=== PATIENT | female | born 1985 | race Caucasian/White ===

== ENCOUNTER → 2016-07-15 | Outpatient (CLI) | payer BC | END | disposition home or self-care (01) | LOC: LABWHC1 06:36 | PROVIDERS: ATTEND Obstetrics & Gynecology Reproductive Endocrinology | DX: N97.0 Female infertility associated with anovulation (principal) | CPT/HCPCS: 36415; 82670 ==

== ENCOUNTER → 2016-09-14 | Outpatient (CLI) | payer BC | LOC: LABWHC1 06:37 | PROVIDERS: ATTEND Obstetrics & Gynecology Reproductive Endocrinology | DX: N97.0 Female infertility associated with anovulation (principal) | CPT/HCPCS: 36415; 82670 ==

== ENCOUNTER 2016-10-02 07:55 | Emergency (ER) | payer BC ==
[2016-10-02 08:01] VITALS: TEMP 98.3
[2016-10-02] MEDS ORDERED: METOCLOPRAMIDE 5 MG/ML 2 ML VIAL IVP STA ×2 (08:12→10:07)
[2016-10-02] MEDS ORDERED: FAMOTIDINE 20 MG/2 ML VIAL IV STA (08:12)
--- NOTE | 2016-10-02 08:17 | ED ---
Abdominal Pain HPI - General Chief Complaint: Abdominal Pain Stated Complaint: HEARTBURN, VOMITING, CHEST PAIN Time Seen by Provider: 10/02/16 08:05 Source: patient, RN notes reviewed Mode of arrival: ambulatory Limitations: no limitations - History of Present Illness Initial Comments: Patient is a 31-year-old female presents emergency room for evaluation heartburn , nausea and vomiting. Patient states symptoms began last night. Patient states she has a history of heartburn. Patient states around 6 PM she began experiencing heartburn and took Prilosec. Patient states shortly after she began vomiting. Patient states she's vomited about 12 times since last night. Patient states she is still experiencing heartburn. Patient states she is still feeling very nauseous. Patient denies any abdominal pain. Patient states pain is in her upper midepigastric area. Patient denies diarrhea or constipation. Patient denies recent travel outside the country. Patient denies new foods. Patient denies shortness of breath. Patient denies headache or dizziness. Patient denies fevers or chills. Patient states she's been unable to keep any food or water down. Patient states her last menstrual cycle was 09/18/16. Patient states that she is on a fertility regimen. Patient states she just received Ovidrel on Monday. Patient states this is her third round of Ovidrel. - Related Data Home Medications Medication Instructions Recorded Confirmed Cetirizine HCl [Zyrtec] 10 mg PO DAILY 10/02/16 10/02/16 Choriogonadotropin Som [Ovidrel] 250 mcg SQ Q28D 10/02/16 10/02/16 Omeprazole [PriLOSEC] 20 mg PO DAILY 10/02/16 10/02/16 Previous Rx's Medication Instructions Recorded Famotidine [Pepcid] 20 mg PO DAILY PRN #12 tablet 10/02/16 Metoclopramide HCl [Reglan] 5 mg PO Q8HR PRN #12 tablet 10/02/16 Allergies Allergy/AdvReac Type Severity Reaction Status Date / Time No Known Allergies Allergy Verified 10/02/16 08:47 Review of Systems ROS Statement: Those systems with pertinent positive or pertinent negative responses have been documented in the HPI. ROS Other: All systems not noted in ROS Statement are negative. Past Medical History Additional Past Medical History / Comment(s): Seasonal Allergies; Hypoglycemia History of Any Multi-Drug Resistant Organisms: None Reported Past Surgical History: No Surgical Hx Reported Past Psychological History: No Psychological Hx Reported Smoking Status: Never smoker Past Alcohol Use History: Occasional Past Drug Use History: None Reported General Exam - General Exam Comments Initial Comments: Sitting in exam room, no acute distress. Limitations: no limitations General appearance: alert, in no apparent distress Head exam: Present: atraumatic, normocephalic, normal inspection Eye exam: Present: normal appearance ENT exam: Present: normal exam Neck exam: Present: normal inspection Respiratory exam: Present: normal lung sounds bilaterally. Absent: respiratory distress Cardiovascular Exam: Present: regular rate, normal rhythm, normal heart sounds GI/Abdominal exam: Present: soft, tenderness (Upper mid epigastric), normal bowel sounds. Absent: distended, guarding, rebound, rigid Extremities exam: Present: normal inspection Back exam: Present: normal inspection Neurological exam: Present: alert, oriented X3, CN II-XII intact, normal gait Psychiatric exam: Present: normal affect, normal mood Skin exam: Present: warm, dry, intact, normal color. Absent: rash Course Vital Signs 10/02/16 10/02/16 10/02/16 07:56 12:40 13:26 Temperature 98.3 F 98.3 F Pulse Rate 55 L 54 L 57 L Respiratory 20 18 20 Rate Blood Pressure 139/77 159/82 144/80 O2 Sat by Pulse 100 97 100 Oximetry - Reevaluation(s) Reevaluation #1: 10/02/16 11:17 Patient reevaluated still having upper epigastric pain. Patient offered stronger pain medications. Patient's urine test positive most likely due to Ovidrel. Patient does state that they will not know for sure if patient is actually until 9-14 days after she takes medication. Urine therefore may be a false positive. Patient offered CT even though urine test positive. Patient declined CT and she thinks it just heartburn. We evaluated patient. Reevaluation #2: 10/02/16 12:34 Patient reevaluated and still has not stopped her pain medications. Will reevaluate patient shortly after she receives medications. Again spoke with patient on further evaluation. Patient declined. Medical Decision Making - Medical Decision Making Patient is a 31-year-old female presents to emergency room for nausea, vomiting and heartburn. Patient states she's feeling better after medications given. Patient rehydrated with fluids. Patient declines further evaluation. Patient is currently on Ovirel fertility treatment. Patient states this third round and has never had any issues. I did look up adverse effects and there is possibility of thromboembolism. This was explained to patient and her . Patient was still declined any further evaluation and would like to be discharged home. Will send patient home with Reglan and Pepcid as needed and advised her to follow-up with her primary care provider or AIRPORT MAINTENANCE LABORER. Patient states she understands everything that was discussed with her. Return parameters discussed. Case discussed with Dr. Carrion. - Lab Data Result diagrams: 10/02/16 08:24 10/02/16 08:24 Lab Results 10/02/16 10/02/16 10/02/16 Range/Units 08:22 08:22 08:24 WBC (3.8-10.6) k/uL RBC (3.80-5.40) m/uL Hgb (11.4-16.0) gm/dL Hct (34.0-46.0) % MCV (80.0-100.0) fL MCH (25.0-35.0) pg MCHC (31.0-37.0) g/dL RDW (11.5-15.5) % Plt Count (150-450) k/uL Neutrophils % % Lymphocytes % % Monocytes % % Eosinophils % % Basophils % % Neutrophils # (1.3-7.7) k/uL Lymphocytes # (1.0-4.8) k/uL Monocytes # (0-1.0) k/uL Eosinophils # (0-0.7) k/uL Basophils # (0-0.2) k/uL Sodium (137-145) mmol/L Potassium (3.5-5.1) mmol/L Chloride (98-107) mmol/L Carbon Dioxide (22-30) mmol/L Anion Gap mmol/L BUN (7-17) mg/dL Creatinine (0.52-1.04) mg/dL Est GFR (MDRD) Af Amer (>60 ml/min/1.73 sqM) Est GFR (MDRD) Non-Af (>60 ml/min/1.73 sqM) Glucose (74-99) mg/dL Calcium (8.4-10.2) mg/dL Total Bilirubin (0.2-1.3) mg/dL AST (14-36) U/L ALT (9-52) U/L Alkaline Phosphatase (38-126) U/L Total Protein (6.3-8.2) g/dL Albumin (3.5-5.0) g/dL Amylase (30-110) U/L Lipase 53 (23-300) U/L Urine Color Yellow Urine Appearance Cloudy H (Clear) Urine pH 5.5 (5.0-8.0) Ur Specific [place] 1.027 (1.001-1.035) Urine Protein 1+ H (Negative) Urine Glucose (UA) Negative (Negative) Urine Ketones 4+ H (Negative) Urine Blood Trace H (Negative) Urine Nitrite Negative (Negative) Urine Bilirubin Negative (Negative) Urine Urobilinogen <2.0 (<2.0) mg/dL Ur Leukocyte Esterase Small H (Negative) Urine RBC 6 H (0-5) /hpf Urine WBC 4 (0-5) /hpf Ur Squamous Epith Cells 3 (0-4) /hpf Urine Mucus Many H (None) /hpf Urine HCG, Qual Detected (Not Detectd) 10/02/16 10/02/16 Range/Units 08:24 08:24 WBC 20.9 H (3.8-10.6) k/uL RBC 4.58 (3.80-5.40) m/uL Hgb 14.3 (11.4-16.0) gm/dL Hct 43.1 (34.0-46.0) % MCV 94.0 (80.0-100.0) fL MCH 31.3 (25.0-35.0) pg MCHC 33.3 (31.0-37.0) g/dL RDW 12.8 (11.5-15.5) % Plt Count 340 (150-450) k/uL Neutrophils % 92 % Lymphocytes % 5 % Monocytes % 1 % Eosinophils % 1 % Basophils % 1 % Neutrophils # 19.3 H (1.3-7.7) k/uL Lymphocytes # 1.0 (1.0-4.8) k/uL Monocytes # 0.3 (0-1.0) k/uL Eosinophils # 0.1 (0-0.7) k/uL Basophils # 0.1 (0-0.2) k/uL Sodium 139 (137-145) mmol/L Potassium 4.3 (3.5-5.1) mmol/L Chloride 103 (98-107) mmol/L Carbon Dioxide 24 (22-30) mmol/L Anion Gap 12 mmol/L BUN 11 (7-17) mg/dL Creatinine 0.72 (0.52-1.04) mg/dL Est GFR (MDRD) Af Amer >60 (>60 ml/min/1.73 sqM) Est GFR (MDRD) Non-Af >60 (>60 ml/min/1.73 sqM) Glucose 119 H (74-99) mg/dL Calcium 10.0 (8.4-10.2) mg/dL Total Bilirubin 0.7 (0.2-1.3) mg/dL AST 19 (14-36) U/L ALT 24 (9-52) U/L Alkaline Phosphatase 90 (38-126) U/L Total Protein 7.9 (6.3-8.2) g/dL Albumin 4.6 (3.5-5.0) g/dL Amylase 51 (30-110) U/L Lipase (23-300) U/L Urine Color Urine Appearance (Clear) Urine pH (5.0-8.0) Ur Specific [place] (1.001-1.035) Urine Protein (Negative) Urine Glucose (UA) (Negative) Urine Ketones (Negative) Urine Blood (Negative) Urine Nitrite (Negative) Urine Bilirubin (Negative) Urine Urobilinogen (<2.0) mg/dL Ur Leukocyte Esterase (Negative) Urine RBC (0-5) /hpf Urine WBC (0-5) /hpf Ur Squamous Epith Cells (0-4) /hpf Urine Mucus (None) /hpf Urine HCG, Qual (Not Detectd) Disposition Clinical Impression: Nausea and vomiting, GERD (gastroesophageal reflux disease) Disposition: HOME SELF-CARE Condition: Good Instructions: Gastroesophageal Reflux Disease (ED), Acute Nausea and Vomiting ( ED) Additional Instructions: Take medications as needed. Please follow-up with primary care provider for reevaluation in 24-48 hours. If any new symptom arises or symptoms worsen, return to ER as soon as possible. Prescriptions: Metoclopramide HCl [Reglan] 5 mg PO Q8HR PRN #12 tablet PRN Reason: Nausea Famotidine [Pepcid] 20 mg PO DAILY PRN #12 tablet PRN Reason: Pain Referrals: Deanna Shah MD [Primary Care Provider] - 1-2 days Time of Disposition: 13:19
[2016-10-02] MEDS ORDERED: SODIUM CHLORIDE 0.9% 1,000 ML IV STA (08:21)
[2016-10-02 08:39] LABS: Basophils # (A) 0.1 k/uL (0-0.2); Basophils % (A) 1 %; CH 32.2; CHCM 34.5; Eosinophils # (A) 0.1 k/uL (0-0.7); Eosinophils % (A) 1 %; HCT 43.1 % (34.0-46.0); HDW 2.37; HGB 14.3 gm/dL (11.4-16.0); Luc # (Auto) 0.08; Luc % (Auto) 0; Lymphocytes % (A) 5 %; MCH 31.3 pg (25.0-35.0); MCHC 33.3 g/dL (31.0-37.0); Mean Platelet Volume 6.8; Monocytes # (A) 0.3 k/uL (0-1.0); Monocytes % (A) 1 %; Neutrophils # (A) 19.3 k/uL (1.3-7.7); Neutrophils % (A) 92 %; RBC 4.58 m/uL (3.80-5.40); RDW 12.8 % (11.5-15.5); WBC 20.9 k/uL (3.8-10.6); WBC (Perox) 20.55
[2016-10-02 08:50] LABS: ALT 24 U/L (9-52); AST 19 U/L (14-36); Alkaline Phosphatase 90 U/L (38-126); Amylase 51 U/L (30-110); Anion Gap 12 mmol/L; Blood Urea Nitrogen 11 mg/dL (7-17); Carbon Dioxide 24 mmol/L (22-30); Chloride 103 mmol/L (98-107); Glucose 119 mg/dL (74-99); Non-African American GFR(MDRD) >60 (>60 ml/min/1.73 sqM); Potassium 4.3 mmol/L (3.5-5.1); Sodium 139 mmol/L (137-145); Total Bilirubin 0.7 mg/dL (0.2-1.3); Total Protein 7.9 g/dL (6.3-8.2)
[2016-10-02 08:53] LABS: Appearance,Urine Cloudy (Clear); Bilirubin,Urine Negative (Negative); Glucose,Urine (UA) Negative (Negative); Ketones,Urine 4+ (Negative); Leukocyte Esterase,Urine Small (Negative); Mucus,Urine Many /hpf; Nitrite,Urine Negative (Negative); PH, Urine 5.5 (5.0-8.0); Particle Count 18281; Protein,Urine 1+ (Negative); RBC,Urine 6 /hpf (0-5); Specific Gravity,Urine 1.027 (1.001-1.035); Squamous Epithelial Cell,Urine 3 /hpf (0-4); UA Billing (MACRO vs. MICRO) MICRO; Urobilinogen,Urine <2.0 mg/dL (<2.0); WBC,Urine 4 /hpf (0-5)
[2016-10-02] MEDS ORDERED: ONDANSETRON 4 MG/2 ML VIAL IVP STA (09:11)
[2016-10-02] MEDS ORDERED: HYDROmorphone 1 MG/ML 1 ML SYRINGE IVP STA (11:09)
[2016-10-02] MEDS ORDERED: SODIUM CHLORIDE 0.9% 1,000 ML IV ONE (11:09)
[2016-10-02 13:31] VITALS: BP 144/80; PULSE 57; RESP 20
== END 2016-10-02 13:31 | disposition home or self-care (01) ==
LOC: EC 07:55
DX: K21.9 Gastro-esophageal reflux disease without esophagitis (principal); R11.2 Nausea with vomiting, unspecified; R07.9 Chest pain, unspecified; Z79.899 Other long term (current) drug therapy
CPT/HCPCS: 36415; 93005; 80053; 82150; 83690; 85025; 81001; 81025; 99284; 96374; 96375 ×3; 96376; J2765; J2405; J1170

== ENCOUNTER → 2016-10-11 | Outpatient (CLI) | payer BC | END | disposition home or self-care (01) | LOC: LABWHC1 06:32 | PROVIDERS: ATTEND Obstetrics & Gynecology Reproductive Endocrinology | DX: N91.0 Primary amenorrhea (principal) | CPT/HCPCS: 36415; 84144; 84702 ==

== ENCOUNTER → 2016-10-13 | Outpatient (CLI) | payer BC ==
[2016-10-13 07:20] LABS: HCG,Quantitative Serum 1739.3 mIU/mL
== END | disposition home or self-care (01) ==
LOC: LABWHC1 06:33
PROVIDERS: ATTEND Obstetrics & Gynecology Reproductive Endocrinology
DX: N91.2 Amenorrhea, unspecified (principal)
CPT/HCPCS: 36415; 84443; 84702; 86900; 86901

== ENCOUNTER → 2016-10-17 | Outpatient (CLI) | payer BC | END | disposition home or self-care (01) | LOC: LABWHC1 06:36 | PROVIDERS: ATTEND Obstetrics & Gynecology Reproductive Endocrinology | DX: O20.0 Threatened abortion (principal); Z3A.00 Weeks of gestation of pregnancy not specified | CPT/HCPCS: 36415; 84702 ==

== ENCOUNTER → 2016-12-13 | Outpatient (CLI) | payer BC ==
[2016-12-13 14:23] LABS: CH 31.7; CHCM 34.9; HCT 35.1 % (34.0-46.0); HDW 2.44; HGB 12.3 gm/dL (11.4-16.0); MCHC 35.1 g/dL (31.0-37.0); MCV 91.2 fL (80.0-100.0); Mean Platelet Volume 7.5; RBC 3.85 m/uL (3.80-5.40); RDW 13.6 % (11.5-15.5); WBC 11.2 k/uL (3.8-10.6)
[2016-12-13 14:28] LABS: Glucose 103 mg/dL (74-99); Non-African American GFR(MDRD) >60 (>60 ml/min/1.73 sqM)
[2016-12-13 14:58] LABS: Hepatitis B Surface Ag Index 0.05
[2016-12-13 19:00] LABS: Treponemal Ab Non-Reactive (Non-Reactive)
== END | disposition home or self-care (01) ==
LOC: LABWHC1 13:13
PROVIDERS: ATTEND Obstetrics & Gynecology
DX: Z34.01 Encounter for supervision of normal first pregnancy, first trimester (principal); R53.83 Other fatigue
CPT/HCPCS: 36415; 82565; 82947; 85027; 86762; 86780; 86850; 87340; 87390

== ENCOUNTER 2016-12-14 11:34 | Emergency (ER) | payer BC ==
[2016-12-14] MEDS ORDERED: SODIUM CHLORIDE 0.9% 1,000 ML IV STA (12:16)
[2016-12-14 12:17] LABS: Glucose,Whole Blood 105 mg/dL (75-99)
--- NOTE | 2016-12-14 12:17 | ED ---
Fall HPI - General Chief Complaint: Fall Stated Complaint: 13 WEEKS PREG, SYNCOPE Time Seen by Provider: 12/14/16 12:05 Source: patient, RN notes reviewed, old records reviewed Mode of arrival: wheelchair - History of Present Illness Initial Comments: Physical 31-year-old female presenting to the emergency Department chief complaint of syncopal episode today. Patient reports that she was sitting in her garage talking to her and all of a sudden felt lightheaded. Patient reports that at that time she did pass out and went to the ground. She denies hitting her head, but did twist her right foot. She reports there is pain over the top of the right foot. Denies any peripheral paresthesias or decreased range of motion in the toes or ankle. She reports that there was a brief loss of consciousness for one to 2 seconds. Patient's states that she responded quickly after he ran to her. Patient is currently 13 weeks . She reports that she did have some bleeding and was concerned for this last week. She has followed up with her ENGINEERING PROGRAMMER and does have an appointment next week. Patient denies any abdominal pain, chest pain or shortness of breath. She denies any vaginal discharge or bleeding at this time. She states that her ENGINEERING PROGRAMMER is Dr. Daly. - Related Data Home Medications Medication Instructions Recorded Confirmed Cetirizine HCl [Zyrtec] 10 mg PO HS 10/02/16 12/14/16 Cholecalciferol [Vitamin D3] 1,000 unit PO DAILY 12/14/16 12/14/16 Ccx-Mifh-Daqum Acid 1 cap PO DAILY 12/14/16 12/14/16 [-U Capsule (formulary)] Vitamin B Sticks 1 dose PO DAILY PRN 12/14/16 12/14/16 diphenhydrAMINE HCL [Benadryl] 25 - 50 mg PO Q6H PRN 12/14/16 12/14/16 Allergies Allergy/AdvReac Type Severity Reaction Status Date / Time No Known Allergies Allergy Verified 12/14/16 11:52 Review of Systems ROS Statement: Those systems with pertinent positive or pertinent negative responses have been documented in the HPI. ROS Other: All systems not noted in ROS Statement are negative. Past Medical History Additional Past Medical History / Comment(s): Seasonal Allergies; Hypoglycemia History of Any Multi-Drug Resistant Organisms: None Reported Past Surgical History: No Surgical Hx Reported Past Psychological History: No Psychological Hx Reported Smoking Status: Never smoker Past Alcohol Use History: Occasional Past Drug Use History: None Reported General Exam - General Exam Comments Initial Comments: 31-year-old female. Patient does not appear to be in any acute distress. Patient reports that she feels fine at this time besides the irritation over her foot. Limitations: no limitations General appearance: alert, in no apparent distress Head exam: Present: atraumatic, normocephalic, normal inspection Eye exam: Present: normal appearance, PERRL, EOMI. Absent: scleral icterus, conjunctival injection, periorbital swelling ENT exam: Present: normal exam, mucous membranes moist Neck exam: Present: normal inspection. Absent: tenderness, meningismus, lymphadenopathy Respiratory exam: Present: normal lung sounds bilaterally. Absent: respiratory distress, wheezes, rales, rhonchi, stridor Cardiovascular Exam: Present: regular rate, normal rhythm, normal heart sounds. Absent: systolic murmur, diastolic murmur, rubs, gallop, clicks GI/Abdominal exam: Present: soft, normal bowel sounds. Absent: distended, tenderness, guarding, rebound, rigid Extremities exam: Present: normal inspection, full ROM, normal capillary refill. Absent: tenderness, pedal edema, joint swelling, calf tenderness Back exam: Present: normal inspection Neurological exam: Present: alert, oriented X3, CN II-XII intact Psychiatric exam: Present: normal affect, normal mood Skin exam: Present: warm, dry, intact, normal color. Absent: rash Course Vital Signs 12/14/16 12/14/16 11:39 14:09 Temperature 97.3 F L 98.4 F Pulse Rate 70 64 Respiratory 17 18 Rate Blood Pressure 125/70 114/58 O2 Sat by Pulse 100 100 Oximetry Procedures - Orthopedic Splinting/Casting Injury #1 Side: right Lower Extremity Immobilizer: posterior splint Medical Decision Making - Medical Decision Making Physical 31-year-old female presenting to the emergency Department chief complaint of syncopal episode today. Patient reports that she was sitting in her garage talking to her and all of a sudden felt lightheaded. Patient reports that at that time she did pass out and went to the ground. She denies hitting her head, but did twist her right foot. She reports there is pain over the top of the right foot. Denies any peripheral paresthesias or decreased range of motion in the toes or ankle. She reports that there was a brief loss of consciousness for one to 2 seconds. Patient's states that she responded quickly after he ran to her. Patient is currently 13 weeks . She reports that she did have some bleeding and was concerned for this last week. Patient's lab work and EKG reviewed and negative for any acute process. A foot x-ray does show evidence of a second metatarsal fracture. Patient was placed in a posterior splint. I discussed following up with orthopedic physician. [facility] ultrasound shows single IUP measuring 14 weeks. Her rate of 147. Patient agrees to treatment plan will comply. Return parameters were discussed. - Lab Data Result diagrams: 12/14/16 12:32 12/14/16 12:32 Lab Results 12/14/16 12/14/16 12/14/16 Range/Units 12:15 12:32 12:32 WBC 11.0 H (3.8-10.6) k/uL RBC 3.97 (3.80-5.40) m/uL Hgb 12.7 (11.4-16.0) gm/dL Hct 35.9 (34.0-46.0) % MCV 90.4 (80.0-100.0) fL MCH 31.9 (25.0-35.0) pg MCHC 35.3 (31.0-37.0) g/dL RDW 13.4 (11.5-15.5) % Plt Count 304 (150-450) k/uL Neutrophils % 81 % Lymphocytes % 12 % Monocytes % 5 % Eosinophils % 1 % Basophils % 0 % Neutrophils # 8.9 H (1.3-7.7) k/uL Lymphocytes # 1.4 (1.0-4.8) k/uL Monocytes # 0.5 (0-1.0) k/uL Eosinophils # 0.1 (0-0.7) k/uL Basophils # 0.0 (0-0.2) k/uL PT (9.0-12.0) sec INR (<1.1) APTT (22.0-30.0) sec Sodium (137-145) mmol/L Potassium (3.5-5.1) mmol/L Chloride (98-107) mmol/L Carbon Dioxide (22-30) mmol/L Anion Gap mmol/L BUN (7-17) mg/dL Creatinine (0.52-1.04) mg/dL Est GFR (MDRD) Af Amer (>60 ml/min/1.73 sqM) Est GFR (MDRD) Non-Af (>60 ml/min/1.73 sqM) Glucose (74-99) mg/dL POC Glucose (mg/dL) 105 H (75-99) mg/dL POC Glu Rack Pusher ID Marlee Gutierrez Calcium (8.4-10.2) mg/dL Magnesium (1.6-2.3) mg/dL Total Bilirubin (0.2-1.3) mg/dL AST (14-36) U/L ALT (9-52) U/L Alkaline Phosphatase (38-126) U/L Total Creatine Kinase 24 L (30-135) U/L CK-MB (CK-2) <0.2 (0.0-2.4) ng/mL CK-MB (CK-2) Rel Index Troponin I <0.012 (0.000-0.034) ng/mL Total Protein (6.3-8.2) g/dL Albumin (3.5-5.0) g/dL Urine Color Urine Appearance (Clear) Urine pH (5.0-8.0) Ur Specific [place] (1.001-1.035) Urine Protein (Negative) Urine Glucose (UA) (Negative) Urine Ketones (Negative) Urine Blood (Negative) Urine Nitrite (Negative) Urine Bilirubin (Negative) Urine Urobilinogen (<2.0) mg/dL Ur Leukocyte Esterase (Negative) Urine RBC (0-5) /hpf Urine WBC (0-5) /hpf Ur Squamous Epith Cells (0-4) /hpf Urine Mucus (None) /hpf 12/14/16 12/14/16 12/14/16 Range/Units 12:32 12:32 12:45 WBC (3.8-10.6) k/uL RBC (3.80-5.40) m/uL Hgb (11.4-16.0) gm/dL Hct (34.0-46.0) % MCV (80.0-100.0) fL MCH (25.0-35.0) pg MCHC (31.0-37.0) g/dL RDW (11.5-15.5) % Plt Count (150-450) k/uL Neutrophils % % Lymphocytes % % Monocytes % % Eosinophils % % Basophils % % Neutrophils # (1.3-7.7) k/uL Lymphocytes # (1.0-4.8) k/uL Monocytes # (0-1.0) k/uL Eosinophils # (0-0.7) k/uL Basophils # (0-0.2) k/uL PT 10.1 (9.0-12.0) sec INR 1.0 (<1.1) APTT 25.1 (22.0-30.0) sec Sodium 138 (137-145) mmol/L Potassium 4.5 (3.5-5.1) mmol/L Chloride 106 (98-107) mmol/L Carbon Dioxide 23 (22-30) mmol/L Anion Gap 9 mmol/L BUN 7 (7-17) mg/dL Creatinine 0.61 (0.52-1.04) mg/dL Est GFR (MDRD) Af Amer >60 (>60 ml/min/1.73 sqM) Est GFR (MDRD) Non-Af >60 (>60 ml/min/1.73 sqM) Glucose 92 (74-99) mg/dL POC Glucose (mg/dL) (75-99) mg/dL POC Glu Rack Pusher ID Calcium 9.2 (8.4-10.2) mg/dL Magnesium 1.7 (1.6-2.3) mg/dL Total Bilirubin 0.4 (0.2-1.3) mg/dL AST 15 (14-36) U/L ALT 23 (9-52) U/L Alkaline Phosphatase 100 (38-126) U/L Total Creatine Kinase (30-135) U/L CK-MB (CK-2) (0.0-2.4) ng/mL CK-MB (CK-2) Rel Index Troponin I (0.000-0.034) ng/mL Total Protein 6.6 (6.3-8.2) g/dL Albumin 3.8 (3.5-5.0) g/dL Urine Color Yellow Urine Appearance Cloudy H (Clear) Urine pH 7.0 (5.0-8.0) Ur Specific [place] 1.017 (1.001-1.035) Urine Protein 1+ H (Negative) Urine Glucose (UA) Negative (Negative) Urine Ketones Negative (Negative) Urine Blood Negative (Negative) Urine Nitrite Negative (Negative) Urine Bilirubin Negative (Negative) Urine Urobilinogen <2.0 (<2.0) mg/dL Ur Leukocyte Esterase Negative (Negative) Urine RBC 1 (0-5) /hpf Urine WBC 1 (0-5) /hpf Ur Squamous Epith Cells 4 (0-4) /hpf Urine Mucus Moderate H (None) /hpf 12/14/16 12:44 EKG shows normal sinus rhythm. Low voltage QRS. Majority of 74 bpm. NM interval 142 ms. QRS duration 96 ms. QT QTC 396/439 ms. - Radiology Data Radiology results: report reviewed Transverse slightly comminuted fracture at the second metatarsal days. Correlate for possible Lisfranc type injury. No malalignment. ultrasound was reviewed and shows a single IUP measuring 14 weeks 3 days. Heart rate of 147. Disposition Clinical Impression: Metatarsal stress fracture of right foot, Syncope, Disposition: HOME SELF-CARE Condition: Good Instructions: Syncope (ED), Foot Fracture in Adults (ED) Additional Instructions: Patient is to rest, ice, and elevate extremity. Follow-up with orthopedic physician. Remain in splint. Return to the emergency department if any alarming signs or symptoms occur. Referrals: Deanna Shah MD [Primary Care Provider] - 1-2 days Abad Galdamez MD [STAFF PHYSICIAN] - 1-2 days Time of Disposition: 15:23
[2016-12-14 13:06] LABS: ALT 23 U/L (9-52); AST 15 U/L (14-36); Alkaline Phosphatase 100 U/L (38-126); Anion Gap 9 mmol/L; Blood Urea Nitrogen 7 mg/dL (7-17); Calcium 9.2 mg/dL (8.4-10.2); Carbon Dioxide 23 mmol/L (22-30); Chloride 106 mmol/L (98-107); Glucose 92 mg/dL (74-99); Magnesium 1.7 mg/dL (1.6-2.3); Non-African American GFR(MDRD) >60 (>60 ml/min/1.73 sqM); Potassium 4.5 mmol/L (3.5-5.1); Sodium 138 mmol/L (137-145); Total Bilirubin 0.4 mg/dL (0.2-1.3); Total Protein 6.6 g/dL (6.3-8.2)
[2016-12-14 13:14] LABS: Basophils % (A) 0 %; CH 31.5; Eosinophils # (A) 0.1 k/uL (0-0.7); Eosinophils % (A) 1 %; HCT 35.9 % (34.0-46.0); HDW 2.46; HGB 12.7 gm/dL (11.4-16.0); Luc # (Auto) 0.09; Luc % (Auto) 1; Lymphocytes # (A) 1.4 k/uL (1.0-4.8); Lymphocytes % (A) 12 %; MCH 31.9 pg (25.0-35.0); MCHC 35.3 g/dL (31.0-37.0); MCV 90.4 fL (80.0-100.0); Mean Platelet Volume 7.1; Monocytes # (A) 0.5 k/uL (0-1.0); Monocytes % (A) 5 %; Neutrophils # (A) 8.9 k/uL (1.3-7.7); Neutrophils % (A) 81 %; Partial Thromboplastin Time 25.1 sec (22.0-30.0); Prothrombin Time 10.1 sec (9.0-12.0); RBC 3.97 m/uL (3.80-5.40); RDW 13.4 % (11.5-15.5); WBC (Perox) 10.29
[2016-12-14 13:19] LABS: Creatine Kinase 24 U/L (30-135)
[2016-12-14 13:32] LABS: Creatine Kinase MB <0.2 ng/mL (0.0-2.4); Troponin I <0.012 ng/mL (0.000-0.034)
--- NOTE | 2016-12-14 13:40 | XR ---
EXAMINATION TYPE: XR foot complete RT DATE OF EXAM: 12/14/2016 COMPARISON: NONE HISTORY: 31-year-old female pain along the top of the foot, unknown injury TECHNIQUE: 3 views FINDINGS: There is a transverse, slightly comminuted fracture at the base of the second metatarsal. Associated soft tissue swelling. Small plantar calcaneal spur. No additional acute fracture or dislocation seen. IMPRESSION: Transverse, slightly comminuted fracture at the second metatarsal base. Correlate for possible [place] type injury. No malalignment.
[2016-12-14 14:10] VITALS: RESP 18
[2016-12-14 14:18] LABS: Appearance,Urine Cloudy (Clear); Bilirubin,Urine Negative (Negative); Glucose,Urine (UA) Negative (Negative); Ketones,Urine Negative (Negative); Leukocyte Esterase,Urine Negative (Negative); Mucus,Urine Moderate /hpf; Nitrite,Urine Negative (Negative); Particle Count 7977; Protein,Urine 1+ (Negative); RBC,Urine 1 /hpf (0-5); Specific Gravity,Urine 1.017 (1.001-1.035); Squamous Epithelial Cell,Urine 4 /hpf (0-4); UA Billing (MACRO vs. MICRO) MICRO; Urobilinogen,Urine <2.0 mg/dL (<2.0); WBC,Urine 1 /hpf (0-5)
--- NOTE | 2016-12-14 15:00 | US ---
EXAMINATION TYPE: US OB >= 14 wk fetus DATE OF EXAM: 12/14/2016 COMPARISON: None CLINICAL HISTORY: 31-year-old female with Pain. EC patient who passed out today and fell on abdomen; ; patient denies vaginal bleeding and pain TECHNIQUE: Transabdominal (TA) FINDINGS: GESTATIONAL AGE / DATING Physician Established: not established Dates by LMP: (14 weeks/0 days) EDC: 06/14/2017 Dates by First Scan: today Dates by Current Scan: (14 weeks/3 days) EDC: 06/11/2017 SURVEY IUP: Single PLACENTA: Anterior PREVIA: Low Lying, caudal placental margin located approximately 1.3 cm from the internal cervical o s. DANIAL: 9.4 cm appears wnl and is <16weeks (when DANIAL is normally assessed) CERVICAL LENGTH (transabdominal: norm > 3.0cm): 3.4 cm BIOMETRY PRESENTATION: Breech LIE: Longitudinal BPD: 2.7 cm 14 weeks / 5 days HC: 10.0 cm 14 weeks / 5 days AC: 7.7 cm 14 weeks / 1 days FL: 1.4 cm 14 weeks / 1 days ESTIMATED WEIGHT IN GRAMS: 92.5 grams ESTIMATED WEIGHT IN LBS/OZ: 0 lbs. 3 oz. WEIGHT PERCENTAGE BASED ON ESTABLISHED DATES: 48.3% HC/AC: 1.3 Normal FL/AC: 18.4 Normal HEART RATE: 147 bpm RHYTHM: Normal Single, live IUP, 14 weeks/3 days, EDC: 06/11/2017, [id number]. IMPRESSION: 1. Single live intrauterine with estimated gestational age of 14 weeks 0 days by LMP. Curre nt ultrasound biometry is concordant (14 weeks 3 days) placing the child at the 48th percentile for w eight. 2. Complete survey recommended at 18-20 weeks.
[2016-12-14 15:43] VITALS: BP 108/58; PULSE 82; TEMP 99.8
== END 2016-12-14 15:43 | disposition home or self-care (01) ==
LOC: EC 11:34
DX: O99.89 Other specified diseases and conditions complicating pregnancy, childbirth and the puerperium (principal); M84.371A Stress fracture, right ankle, initial encounter for fracture; O26.892 Other specified pregnancy related conditions, second trimester; R55 Syncope and collapse; R42 Dizziness and giddiness; Z79.899 Other long term (current) drug therapy; Z91.09 Other allergy status, other than to drugs and biological substances; Z3A.14 14 weeks gestation of pregnancy; X58.XXXA Exposure to other specified factors, initial encounter; Y92.59 Other trade areas as the place of occurrence of the external cause; Y93.89 Activity, other specified
CPT/HCPCS: 29345; 36415; 76805; 80053; 81001; 82550; 82553; 83735; 84484; 85025; 85610; 85730; 93005; 96360; 99284

== ENCOUNTER → 2017-03-02 | Outpatient (CLI) | payer BC ==
[2017-03-02 09:59] LABS: CH 32.3; CHCM 32.7; HCT 36.2 % (34.0-46.0); HDW 2.42; MCH 32.8 pg (25.0-35.0); MCHC 33.1 g/dL (31.0-37.0); MCV 99.4 fL (80.0-100.0); Mean Platelet Volume 7.7; RBC 3.65 m/uL (3.80-5.40); RDW 13.4 % (11.5-15.5); WBC 10.2 k/uL (3.8-10.6)
== END | disposition home or self-care (01) ==
LOC: LABWHC1 08:44
PROVIDERS: ATTEND Obstetrics & Gynecology
DX: Z34.02 Encounter for supervision of normal first pregnancy, second trimester (principal); Z3A.00 Weeks of gestation of pregnancy not specified
CPT/HCPCS: 36415; 82950; 85027

== ENCOUNTER 2017-06-14 05:54 | Inpatient (IN) | payer BC ==
--- NOTE | 2017-06-13 13:06 | P.HPOB ---
History of Present Illness H&P Date: 06/13/17 Chief Complaint: Induction of labor This is a 32 y.o. female, 1, para 0, with an estimated date of confinement of 06/14/2017, estimated gestational age of 40-0/7 weeks, who presents for induction of labor. She has been experiencing irregular contractions and pressure. She also has significant swelling in her legs. labs: Random glucose-103 Hepatitis B surface antigen-neg Hemoglobin-12.3 HIV-NR Syphilis antibody-neg Rubella-immune Blood type A+ Antibody screen-neg 1 hr. GTT-108 GBS-neg OB Hx: 1st Mold Filler Plastic Dolls Hx: No hx STDs Social Hx: . Teacher Review of Systems Constitutional: Denies chills, Denies fever Eyes: denies blurred vision, denies pain Ears, nose, mouth and throat: Denies headache, Denies sore throat Respiratory: Denies cough Gastrointestinal: Reports abdominal pain (Irreg. ctxs) Genitourinary: Reports pelvic pain, Reports Musculoskeletal: Reports low back pain Musculoskeletal: bilateral: ankle swelling, foot swelling Integumentary: Denies pruritus, Denies rash Neurological: Denies numbness, Denies weakness Psychiatric: Denies anxiety, Denies depression Past Medical History Additional Past Medical History / Comment(s): Seasonal Allergies; Hypoglycemia; Fracture R. foot-at 13 weeks History of Any Multi-Drug Resistant Organisms: None Reported Past Surgical History: No Surgical Hx Reported Past Psychological History: No Psychological Hx Reported Smoking Status: Never smoker Past Alcohol Use History: Occasional Past Drug Use History: None Reported Medications and Allergies Home Medications Medication Instructions Recorded Confirmed Type Cetirizine HCl [Zyrtec] 10 mg PO HS 10/02/16 12/14/16 History Cholecalciferol [Vitamin D3] 1,000 unit PO DAILY 12/14/16 12/14/16 History Chw-Ffgl-Phuxk Acid 1 cap PO DAILY 12/14/16 12/14/16 History [-U Capsule (formulary)] Vitamin B Sticks 1 dose PO DAILY PRN 12/14/16 12/14/16 History diphenhydrAMINE HCL [Benadryl] 25 - 50 mg PO Q6H PRN 12/14/16 12/14/16 History Allergies Allergy/AdvReac Type Severity Reaction Status Date / Time No Known Allergies Allergy Verified 12/14/16 11:52 Exam Osteopathic Statement: *. No significant issues noted on an osteopathic structural exam other than those noted in the History and Physical/Consult. HEENT: within normal limits Heart: regular rate and rhythm Lungs: clear to auscultation bilaterally Abdomen: Cervix: 1 cm/70%/-2 heart tones: 140's by doppler Extremities: 1-2+ pitting edema lower extremities. Assessment and Plan (1) 40 weeks gestation of Status: Acute Code(s): Z3A.40 - 40 WEEKS GESTATION OF SNOMED Code( s): 01133194 Plan: Proceed with induction of labor. Expectant management. Epidural anesthesia if desired.
[2017-06-14] MEDS ORDERED: LIDOCAINE 1% (PF) 10 MG/ML (30 ML SDV) SQ PRN (06:04)
[2017-06-14] MEDS ORDERED: OXYTOCIN 10 UNIT/ML 1 ML VIAL IM PRN (06:04)
[2017-06-14] MEDS ORDERED: METHYLERGONOVINE 0.2 MG/ML 1 ML AMP IM PRN (06:04)
[2017-06-14] MEDS ORDERED: TERBUTALINE 1 MG/ML VIAL SQ PRN (06:04)
[2017-06-14] MEDS ORDERED: LIDOCAINE 1% 20 ML VIAL (10MG/ML) FOR IV START INTRADERMA PRN (06:04)
[2017-06-14] MEDS ORDERED: CARBOPROST TROMETHAMINE 250 MCG/ML 1 ML AMP IM PRN (06:04)
[2017-06-14] MEDS ORDERED: OXYTOCIN 20 UNITS/1000 ML NS 1,000 ML IV SCH ×2 (06:04→19:12)
[2017-06-14 06:12] VITALS: BMI 40.2
[2017-06-14] MEDS: LACTATED RINGERS 1,000 ML IV SCH ×3 (06:30→13:20)
[2017-06-14 06:31] LABS: Basophils % (A) 0 %; Eosinophils # (A) 0.2 k/uL (0-0.7); Eosinophils % (A) 2 %; HCT 39.3 % (34.0-46.0); HGB 13.1 gm/dL (11.4-16.0); Lymphocytes # (A) 1.8 k/uL (1.0-4.8); Lymphocytes % (A) 17 %; MCH 32.3 pg (25.0-35.0); MCHC 33.4 g/dL (31.0-37.0); MCV 96.8 fL (80.0-100.0); Mean Platelet Volume 9.6; Monocytes # (A) 0.4 k/uL (0-1.0); Monocytes % (A) 4 %; Neutrophils # (A) 8.1 k/uL (1.3-7.7); Neutrophils % (A) 75 %; Platelet Count 239 k/uL (150-450); RBC 4.06 m/uL (3.80-5.40); RDW 14.5 % (11.5-15.5); WBC 10.8 k/uL (3.8-10.6)
[2017-06-14] MEDS ORDERED: BUTORPHANOL 1 MG/ML 1 ML VIAL IV PRN (11:01)
[2017-06-14] MEDS ORDERED: SODIUM CHLORIDE 0.9% 100 ML BAG ONE (12:48)
[2017-06-14] MEDS ORDERED: fentaNYL (PF) 50 MCG/ML 5 ML AMP ONE (12:48)
[2017-06-14] MEDS ORDERED: BUPIVACAINE (PF) 0.25% 30 ML VIAL ONE (12:48)
[2017-06-14] MEDS ORDERED: BUPIVACAINE (PF) 0.25% 25 ML, fentaNYL (PF) 200 MCG in SODIUM CHLORIDE 0.9% 71 ML EPIDURAL ONE (13:03)
[2017-06-14] MEDS ORDERED: WITCH HAZEL 1 EACH MED..PAD TOPICAL PRN (19:12)
[2017-06-14] MEDS ORDERED: diphenhydrAMINE 50 MG/ML 1 ML VIAL IVP PRN ×2 (19:12)
[2017-06-14] MEDS ORDERED: ACETAMINOPHEN TAB 325 MG TAB PO PRN (19:12)
[2017-06-14] MEDS ORDERED: LANOLIN CREAM 5 GM TUBE TOPICAL PRN (19:12)
[2017-06-14] MEDS ORDERED: BENZOCAINE/MENTHOL SPRAY 1 GM/SPRAY AEROSOL TOPICAL PRN (19:12)
[2017-06-14] MEDS ORDERED: ZOLPIDEM 5 MG TAB PO PRN (19:12)
[2017-06-14] MEDS ORDERED: diphenhydrAMINE 50 MG CAP PO PRN (19:12)
[2017-06-14] MEDS ORDERED: HYDROCORTISONE 2.5% RECTAL CREAM 30 GM TUBE RECTAL PRN (19:12)
[2017-06-14] MEDS ORDERED: diphenhydrAMINE 25 MG CAP PO PRN (19:12)
[2017-06-14] MEDS ORDERED: SIMETHICONE 80 MG CHEWABLE PO PRN (19:12)
--- NOTE | 2017-06-14 19:25 | P.PROBDLV ---
Vaginal Delivery Note - . Vaginal Delivery Note: The patient progressed to complete dilation after oxytocin induction of labor and artificial rupture of membranes with clear fluid noted. She did receive epidural anesthesia. Once reaching complete dilation, she began pushing. She pushed a little over 2 hours and then infant's head came to a crown. With one further push, the 's head delivered across the perineum followed by the anterior shoulder and then the remainder the body. Infant was placed on mother' s abdomen and nose and mouth were bulb suctioned. Cord was clamped and cut and infant was taken to warmer for evaluation. A viable female infant was noted with scores of 8 at 1 minute and 9 at 5 minutes and infant weight of 7 lbs. 4 oz. Her placenta delivered shortly thereafter, intact, with a three- vessel cord. Uterus did contract fairly well after oxytocin was given and uterine massage was carried out. Her bladder was also drained. Inspection of the perineum revealed a second-degree perineal laceration. This area was anesthetized with 1% lidocaine and sutured with 3-0 and 2-0 Vicryl suture in the usual multilayer fashion. Both mother and are in stable condition. Blood loss is approximately 250 mL.
[2017-06-14] MEDS: LORATADINE 10 MG TAB PO SCH (20:30)
[2017-06-14] MEDS: SENNOSIDES-DOCUSATE SODIUM 1 EACH TAB PO SCH (20:30)
[2017-06-14] MEDS: IBUPROFEN 600 MG TAB PO PRN (21:21)
--- NOTE | 2017-06-15 07:40 | P.DS ---
Providers Date of admission: 06/14/17 05:54 Expected date of discharge: 06/15/17 Attending physician: Rand Daly Primary care physician: Deanna Shah - Discharge Diagnosis(es) (1) 40 weeks gestation of Current Visit: Yes Status: Acute Hospital Course: This is a 32-year-old female 1 para 0 who presented for induction of labor. She underwent oxytocin induction of labor and delivered vaginally a viable female on 06/14/2017. Her course has been uncomplicated. Lochia is decreasing. Pain is fairly well controlled with ibuprofen. She is breast-feeding. Vital signs are stable. Abdomen is soft with fundus firm and nontender. Extremities show negative Homans. Impression is status post vaginal delivery day #1. Plan is to discharge home today. Routine instructions are given. She is advised to follow up in the office in 6 weeks for check. She will be given prescriptions for ibuprofen and a breast pump. She is advised to call the office if she has any further questions or concerns prior to her point in time. Procedures: Oxytocin induction of labor Spontaneous vaginal delivery of a viable female on 06/14/2017 Patient Condition at Discharge: Stable Plan - Discharge Summary New Discharge Prescriptions: New Ibuprofen [Motrin] 600 mg PO Q6HR PRN #60 tab PRN Reason: Mild Pain Or Fever >= 100.5 Continue Ubs-Efrn-Ffqqa Acid [-U Capsule (formulary)] 1 cap PO DAILY No Action Cetirizine HCl [Zyrtec] 10 mg PO HS Cholecalciferol [Vitamin D3] 1,000 unit PO DAILY Discharge Medication List Cetirizine HCl [Zyrtec] 10 mg PO HS 10/02/16 [History] Cholecalciferol [Vitamin D3] 1,000 unit PO DAILY 12/14/16 [History] Qxw-Mpnj-Drqdz Acid [-U Capsule (formulary)] 1 cap PO DAILY 05/21 [History] Ibuprofen [Motrin] 600 mg PO Q6HR PRN #60 tab 06/15/17 [Rx] Follow up Appointment(s)/Referral(s): Rand Daly DO [Doctor of Osteopathic Medicine] - 6 Weeks Activity/Diet/Wound Care/Special Instructions: Instructions 1. Do not begin any exercise program for 3 weeks. 2. Do not resume sexual relations for 3 weeks or longer if uncomfortable. 3. You may take tub baths or showers at any time. 4. You may use tampons if desired after 3 weeks. 5. Keep the area of episiotomy (stitches) clean and dry. 6. If you are not nursing, wear a good fitting, supportive bra during the day and limit fluid intake for at least 1 week to prevent breast engorgement. 7. Call the office, [phone], within the next week to make appointment for your 6 week checkup if it has not already been made. 8. Report any of the following occurrences to the doctor promptly: a. Heavy, excessive bleeding b. Chills, fever c. Burning or frequency of urination d. Pain or redness and breasts if nursing e. Increasing pain or swelling in episiotomy (stitches). In addition to the above instructions, the following additional should be followed: 1. No heavy lifting or straining (exercising) until after 6 week checkup. 2. Keep abdominal incision clean and dry: You may wear a dressing if more comfortable. 3. Make office appointment for 10 days after going home or as instructed by her doctor. Discharge Disposition: HOME SELF-CARE
[2017-06-15] MEDS: IBUPROFEN 600 MG TAB PO PRN ×2 (07:48→15:59)
[2017-06-15] MEDS: SENNOSIDES-DOCUSATE SODIUM 1 EACH TAB PO SCH ×2 (07:48→22:27)
[2017-06-15 10:01] LABS: Basophils % (A) 0 %; Eosinophils # (A) 0.1 k/uL (0-0.7); Eosinophils % (A) 0 %; HCT 35.8 % (34.0-46.0); HGB 11.7 gm/dL (11.4-16.0); Lymphocytes # (A) 1.9 k/uL (1.0-4.8); Lymphocytes % (A) 12 %; MCH 31.6 pg (25.0-35.0); MCHC 32.6 g/dL (31.0-37.0); Monocytes # (A) 0.7 k/uL (0-1.0); Monocytes % (A) 4 %; Neutrophils # (A) 13.8 k/uL (1.3-7.7); Neutrophils % (A) 83 %; Platelet Count 252 k/uL (150-450); RBC 3.69 m/uL (3.80-5.40); RDW 13.7 % (11.5-15.5); WBC 16.5 k/uL (3.8-10.6)
[2017-06-16] MEDS: IBUPROFEN 600 MG TAB PO PRN ×2 (00:07→07:46)
[2017-06-16 01:33] VITALS: RESP 16
[2017-06-16] MEDS: LORATADINE 10 MG TAB PO SCH (01:35)
[2017-06-16] MEDS: SENNOSIDES-DOCUSATE SODIUM 1 EACH TAB PO SCH (07:47)
[2017-06-16 08:54] VITALS: BP 134/73; PULSE 70; TEMP 98.5
--- NOTE | 2017-06-16 12:13 | P.DS ---
Providers Date of admission: 06/14/17 05:54 Expected date of discharge: 06/16/17 Attending physician: Rand Daly Primary care physician: Deanna Shah [facility] Course: doing well. no problems or changes since yesterday. no changes to her discharge summary. They decided to stay due to concerns. d/c instructions reviewed with her as well. fu with dr daly Patient Condition at Discharge: Good Plan - Discharge Summary New Discharge Prescriptions: New Ibuprofen [Motrin] 600 mg PO Q6HR PRN #60 tab PRN Reason: Mild Pain Or Fever >= 100.5 Continue Xsr-Pbhg-Ewqch Acid [-U Capsule (formulary)] 1 cap PO DAILY No Action Cetirizine HCl [Zyrtec] 10 mg PO HS Cholecalciferol [Vitamin D3] 1,000 unit PO DAILY Discharge Medication List Cetirizine HCl [Zyrtec] 10 mg PO HS 10/02/16 [History] Cholecalciferol [Vitamin D3] 1,000 unit PO DAILY 12/14/16 [History] Jgy-Ekei-Hhvzv Acid [-U Capsule (formulary)] 1 cap PO DAILY 05/21 [History] Ibuprofen [Motrin] 600 mg PO Q6HR PRN #60 tab 06/15/17 [Rx] Follow up Appointment(s)/Referral(s): Rand Daly DO [Doctor of Osteopathic Medicine] - 6 Weeks Activity/Diet/Wound Care/Special Instructions: Instructions 1. Do not begin any exercise program for 3 weeks. 2. Do not resume sexual relations for 3 weeks or longer if uncomfortable. 3. You may take tub baths or showers at any time. 4. You may use tampons if desired after 3 weeks. 5. Keep the area of episiotomy (stitches) clean and dry. 6. If you are not nursing, wear a good fitting, supportive bra during the day and limit fluid intake for at least 1 week to prevent breast engorgement. 7. Call the office, [phone], within the next week to make appointment for your 6 week checkup if it has not already been made. 8. Report any of the following occurrences to the doctor promptly: a. Heavy, excessive bleeding b. Chills, fever c. Burning or frequency of urination d. Pain or redness and breasts if nursing e. Increasing pain or swelling in episiotomy (stitches). In addition to the above instructions, the following additional should be followed: 1. No heavy lifting or straining (exercising) until after 6 week checkup. 2. Keep abdominal incision clean and dry: You may wear a dressing if more comfortable. 3. Make office appointment for 10 days after going home or as instructed by her doctor. Discharge Disposition: HOME SELF-CARE
== END 2017-06-16 12:50 | disposition home or self-care (01) | DRG 775 ==
LOC: 4FBP 05:54
PROVIDERS: ADMIT Obstetrics & Gynecology; ATTEND Obstetrics & Gynecology
PROC: 10907ZC Drainage of Amniotic Fluid, Therapeutic from Products of Conception, Via Natural or Artificial Opening (ICD-10-PCS; principal; 2017-06-14)
PROC: 3E0R3BZ Introduction of Anesthetic Agent into Spinal Canal, Percutaneous Approach (ICD-10-PCS; principal; 2017-06-14)
PROC: 00HU33Z Insertion of Infusion Device into Spinal Canal, Percutaneous Approach (ICD-10-PCS; principal; 2017-06-14)
PROC: 10E0XZZ Delivery of Products of Conception, External Approach (ICD-10-PCS; principal; 2017-06-14)
PROC: 3E033VJ Introduction of Other Hormone into Peripheral Vein, Percutaneous Approach (ICD-10-PCS; principal; 2017-06-14)
PROC: 0KQM0ZZ Repair Perineum Muscle, Open Approach (ICD-10-PCS; principal; 2017-06-14)
DX: O48.0 Post-term pregnancy (principal); O70.1 Second degree perineal laceration during delivery; Z37.0 Single live birth; Z3A.40 40 weeks gestation of pregnancy; Z79.899 Other long term (current) drug therapy
CPT/HCPCS: 85025; 88307

== ENCOUNTER → 2018-08-06 | Outpatient (CLI) | payer BC | END | disposition home or self-care (01) | LOC: LABWHC1 16:08 | PROVIDERS: ATTEND Obstetrics & Gynecology | DX: N92.6 Irregular menstruation, unspecified (principal) | CPT/HCPCS: 36415; 84702 ==

== ENCOUNTER → 2018-08-08 | Outpatient (CLI) | payer BC | LOC: LABWHC1 16:22 | PROVIDERS: ATTEND Obstetrics & Gynecology | DX: O26.819 Pregnancy related exhaustion and fatigue, unspecified trimester (principal); Z3A.00 Weeks of gestation of pregnancy not specified | CPT/HCPCS: 36415; 84702 ==

== ENCOUNTER 2018-08-31 19:19 | Emergency (ER) | payer BC ==
[2018-08-31] MEDS ORDERED: ACETAMINOPHEN TAB 500 MG TAB PO STA (20:49)
[2018-08-31 20:58] LABS: Appearance,Urine Clear (Clear); Bilirubin,Urine Negative (Negative); Blood,Urine Negative (Negative); Color,Urine Light Yellow; Glucose,Urine (UA) Negative (Negative); Ketones,Urine 2+ (Negative); Leukocyte Esterase,Urine Negative (Negative); Nitrite,Urine Negative (Negative); PH, Urine 6.5 (5.0-8.0); Protein,Urine Negative (Negative); Urobilinogen,Urine <2.0 mg/dL (<2.0)
--- NOTE | 2018-08-31 21:18 | XR ---
EXAMINATION TYPE: XR chest 2V DATE OF EXAM: 08/31/2018 COMPARISON: NONE HISTORY: Cough TECHNIQUE: Frontal and lateral views of the chest are obtained. FINDINGS: Heart and mediastinum are normal. Lungs are clear. Diaphragm is normal. Bony thorax appear s normal. IMPRESSION: Normal chest.
[2018-08-31 21:31] VITALS: BP 129/85; PULSE 82; RESP 18; TEMP 99.4
--- NOTE | 2018-08-31 21:40 | ED ---
General Adult HPI - General Chief complaint: Upper Respiratory Infection Stated complaint: 8 weeks preg,flu Time Seen by Provider: 08/31/18 19:50 Source: patient, RN notes reviewed Mode of arrival: ambulatory Limitations: no limitations - History of Present Illness Initial comments: 33-year-old female currently 8 weeks presents to the emergency determine for a chief complaint of fever and cough. Patient states she woke up this morning with body aches and cough. She states she also noticed she had a fever. She denies shortness of breath or chest pain. Patient denies any abdominal pain but does state she had a twinge of pain in the pelvic area earlier today. Denies any vaginal bleeding. States she has an ultrasound scheduled for Monday. Denies any vaginal bleeding. Does admit to mild nausea, no vomiting.Patient has no other complaints at this time including shortness of breath, chest pain, abdominal pain, headache, or visual changes. - Related Data Home Medications Medication Instructions Recorded Confirmed Cetirizine HCl [Zyrtec] 10 mg PO HS 10/02/16 08/31/18 Cholecalciferol [Vitamin D3] 1,000 unit PO DAILY 12/14/16 08/31/18 Ybl-Mysl-Rzxpe Acid 1 cap PO DAILY 12/14/16 08/31/18 [-U Capsule (formulary)] Montelukast [Singulair] 10 mg PO DAILY 08/31/18 08/31/18 Allergies Allergy/AdvReac Type Severity Reaction Status Date / Time No Known Allergies Allergy Verified 08/31/18 20:00 Review of Systems ROS Statement: Those systems with pertinent positive or pertinent negative responses have been documented in the HPI. ROS Other: All systems not noted in ROS Statement are negative. Past Medical History Past Medical History: No Reported History Additional Past Medical History / Comment(s): Seasonal Allergies; Hypoglycemia; Fracture R. foot-at 13 weeks History of Any Multi-Drug Resistant Organisms: None Reported Past Surgical History: No Surgical Hx Reported Past Anesthesia/Blood Transfusion Reactions: No Reported Reaction Past Psychological History: No Psychological Hx Reported Smoking Status: Never smoker Past Alcohol Use History: Occasional Past Drug Use History: None Reported - Past Family History Mother Family Medical History: No Reported History General Exam Limitations: no limitations General appearance: alert, in no apparent distress Head exam: Present: atraumatic, normocephalic, normal inspection Eye exam: Present: normal appearance, PERRL, EOMI. Absent: scleral icterus, conjunctival injection, periorbital swelling ENT exam: Present: normal exam, normal oropharynx (Uvula midline, no tonsillar exudates noted bilaterally), mucous membranes moist, TM's normal bilaterally, normal external ear exam Neck exam: Present: normal inspection, full ROM. Absent: tenderness, meningismus, lymphadenopathy Respiratory exam: Present: normal lung sounds bilaterally. Absent: respiratory distress, wheezes, rales, rhonchi, stridor Cardiovascular Exam: Present: regular rate, normal rhythm, normal heart sounds. Absent: systolic murmur, diastolic murmur, rubs, gallop, clicks GI/Abdominal exam: Present: soft, normal bowel sounds. Absent: distended, tenderness, guarding, rebound, rigid Extremities exam: Absent: calf tenderness (No Erythema edema or tenderness noted in the calves) Neurological exam: Present: alert, oriented X3, CN II-XII intact Psychiatric exam: Present: normal affect, normal mood Course Vital Signs 08/31/18 08/31/18 08/31/18 19:40 20:27 21:28 Temperature 99.8 F H 99.4 F Pulse Rate 91 82 Respiratory 18 20 18 Rate Blood Pressure 129/79 129/85 O2 Sat by Pulse 99 99 Oximetry Medical Decision Making - Medical Decision Making 33-year-old female currently 8 weeks presents to the emergency department for a chief complaint of cough and fever that started this morning. Exam is unremarkabl. Patient is well-appearing. Vitals are stable. Influenza is negative. At that time chest x-ray was ordered which showed a normal chest. Urine negative for infection. There are 2+ ketones however patient is a 20 fluids, tolerating by mouth intake in the emergency department. At this time patient likely has a viral syndrome, will be discharged home to follow-up with [employer] [facility] [facility] in 2 days at which she has an appointment. She will return here she has worsening symptoms. - Lab Data Lab Results 08/31/18 08/31/18 08/31/18 Range/Units 20:17 20:50 20:50 Urine Color Light Yellow Urine Appearance Clear (Clear) Urine pH 6.5 (5.0-8.0) Ur Specific [place] 1.010 (1.001-1.035) Urine Protein Negative (Negative) Urine Glucose (UA) Negative (Negative) Urine Ketones 2+ H (Negative) Urine Blood Negative (Negative) Urine Nitrite Negative (Negative) Urine Bilirubin Negative (Negative) Urine Urobilinogen <2.0 (<2.0) mg/dL Ur Leukocyte Esterase Negative (Negative) Urine HCG, Qual Detected (Not Detectd) Influenza Type A RNA Not Detected (Not Detectd) Influenza Type B (PCR) Not Detected (Not Detectd) Disposition Clinical Impression: Viral syndrome Disposition: HOME SELF-CARE Condition: Good Instructions (If sedation given, give patient instructions): Viral Syndrome (ED) Additional Instructions: Please take Tylenol for fever. Please follow-up with primary care or OB in 1-2 days. Please return to the emergency department if you have any worsening symptoms. Is patient prescribed a controlled substance at d/c from ED?: No Referrals: Deanna Shah MD [Primary Care Provider] - 1-2 days Time of Disposition: 21:39
== END 2018-08-31 21:45 | disposition home or self-care (01) ==
LOC: EC 19:19
DX: O98.511 Other viral diseases complicating pregnancy, first trimester (principal); B34.9 Viral infection, unspecified; Z3A.08 8 weeks gestation of pregnancy; Z79.899 Other long term (current) drug therapy
CPT/HCPCS: 71046; 81003; 81025; 87502; 99283

== ENCOUNTER 2019-04-08 20:58 | Inpatient (IN) | payer BC ==
[~2019-04-08 20:58] MED LIST: ROPIVACAINE 5MG/ML 20ML VIAL ONE; SODIUM CHLORIDE 0.9% 100 ML BAG ONE; fentaNYL (PF) 50 MCG/ML 5 ML AMP ONE
--- NOTE | 2019-04-08 22:39 | US ---
EXAMINATION TYPE: US OB limited DATE OF EXAM: 04/08/2019 COMPARISON: US 2017, first US for this . CLINICAL HISTORY: verify position of fetus. Verify position of fetus. . EXAM PERFORMED: Transabdominal (TA) GESTATIONAL AGE / DATING Physician Established: (39 weeks/3 days) EDC: 04/12/2019 No growth performed on today?s study per ordering physician SURVEY PRESENTATION: Vertex LIE: Longitudinal HEART RATE: 128 bpm RHYTHM: Normal IMPRESSION: There is a cephalic presentation. heart rate is 128.
[2019-04-08] MEDS: LACTATED RINGERS 1,000 ML IV SCH (23:06)
[2019-04-08] MEDS ORDERED: LIDOCAINE 0.5% (PF) 5 MG/ML (50 ML SDV) SQ PRN (23:08)
[2019-04-08] MEDS ORDERED: METHYLERGONOVINE 0.2 MG/ML 1 ML AMP IM PRN (23:08)
[2019-04-08] MEDS ORDERED: TERBUTALINE 1 MG/ML VIAL SQ PRN (23:08)
[2019-04-08] MEDS ORDERED: OXYTOCIN 10 UNIT/ML 1 ML VIAL IM PRN (23:08)
[2019-04-08] MEDS ORDERED: CARBOPROST TROMETHAMINE 250 MCG/ML 1 ML AMP IM PRN (23:08)
[2019-04-08] MEDS ORDERED: OXYTOCIN 30 UNITS/500 ML NS 30 UNIT in SALINE 1 500ML.BAG IV SCH (23:15)
[2019-04-08 23:33] LABS: Basophils # (A) 0.1 k/uL (0-0.2); Basophils % (A) 1 %; Eosinophils # (A) 0.1 k/uL (0-0.7); Eosinophils % (A) 1 %; HCT 38.7 % (34.0-46.0); HGB 12.8 gm/dL (11.4-16.0); Lymphocytes # (A) 2.1 k/uL (1.0-4.8); Lymphocytes % (A) 18 %; MCH 31.4 pg (25.0-35.0); MCV 95.3 fL (80.0-100.0); Mean Platelet Volume 6.8; Monocytes # (A) 0.5 k/uL (0-1.0); Monocytes % (A) 4 %; Neutrophils # (A) 8.4 k/uL (1.3-7.7); Neutrophils % (A) 74 %; Platelet Count 281 k/uL (150-450); RBC 4.06 m/uL (3.80-5.40); WBC 11.4 k/uL (3.8-10.6)
[2019-04-09 02:00] VITALS: BMI 39.1
[2019-04-09] MEDS ORDERED: BUTORPHANOL 1 MG/ML 1 ML VIAL IV PRN (03:07)
[2019-04-09] MEDS: LACTATED RINGERS 1,000 ML IV SCH ×3 (04:12→21:00)
[2019-04-09] MEDS ORDERED: AMPICILLIN 2,000 MG in SODIUM CHLORIDE 0.9% 100 ML IVPB STA (05:21)
--- NOTE | 2019-04-09 08:52 | P.PROBDLV ---
Vaginal Delivery Note - . Vaginal Delivery Note: The patient progressed to complete dilation after oxytocin augmentation of labor. She did receive 1 dose of antibiotic for prolonged rupture of membranes. Patient began pushing. Infant's head came to a crown. With one further push, the infant's head delivered across the perineum followed by the anterior shoulder. Tight nuchal cord times one was doubly clamped and cut and reduced around the 's head. With one further push the remainder the easily delivered and was placed on mother's abdomen. Infant was then taken to warmer for evaluation. A viable male was noted with scores of 7 at 1 minute and 7 at 5 minutes. Infant weight was 8 lbs. 0 oz. Placenta delivered shortly thereafter, intact, with a three-vessel cord. Uterus contracted fairly well after oxytocin was given and uterine massage was carried out. Inspection of the perineum revealed a second-degree perineal laceration. This area was anesthetized with 1% lidocaine and then sutured with 30 and 2-0 Vicryl suture in the usual multilayer fashion. Blood clots were expressed from the uterus and her bladder was drained with a straight cath. Minimal bleeding was noted at this time. Estimated blood loss is approximately 200 mL's. Mother and infant are in stable condition.
[2019-04-09] MEDS ORDERED: BENZOCAINE/MENTHOL SPRAY 1 GM/SPRAY AEROSOL TOPICAL PRN ×2 (08:54→09:12)
--- NOTE | 2019-04-09 08:56 | P.HPOB ---
History of Present Illness H&P Date: 04/09/19 Chief Complaint: Spontaneous rupture membranes This is a 34-year-old female 2 para 1 with an estimated date of confinement of 04/12/2019, estimated gestational age of 39-3/7 weeks, who presented with spontaneous rupture of membranes at approximately 10:30 AM yesterday morning. She was feeling irregular contractions upon arrival. Her course has been uncomplicated. labs: Hepatitis B surface antigen-negative RPR-nonreactive Rubella-immune Blood type-A+ Antibody screen-negative Hemoglobin-13.2 Glucose-93 Obstetrical ultrasound-normal anatomy One hour Glucola-117 Group B streptococcus-negative Obstetrical history: . History of 1 vaginal delivery at term with no complications. Gynecologic history: No history of sexual transmitted diseases. Social history: She is . She works as a teacher. Review of Systems Constitutional: Denies chills, Denies fever Eyes: denies blurred vision, denies pain Ears, nose, mouth and throat: Denies headache, Denies sore throat Cardiovascular: Denies chest pain, Denies shortness of breath Respiratory: Denies cough Gastrointestinal: Reports abdominal pain (Irregular contractions) Genitourinary: Reports pelvic pain, Reports Musculoskeletal: Reports low back pain Integumentary: Denies pruritus, Denies rash Neurological: Denies numbness, Denies weakness Psychiatric: Denies anxiety, Denies depression Past Medical History Past Medical History: GERD/Reflux History of Any Multi-Drug Resistant Organisms: None Reported Past Surgical History: No Surgical Hx Reported Past Anesthesia/Blood Transfusion Reactions: No Reported Reaction Past Psychological History: No Psychological Hx Reported Smoking Status: Never smoker Past Alcohol Use History: Occasional Past Drug Use History: None Reported - Past Family History Mother Family Medical History: Thyroid Disorder Father Family Medical History: Cancer, Hyperlipidemia Medications and Allergies Home Medications Medication Instructions Recorded Confirmed Type Cetirizine HCl [Zyrtec] 10 mg PO HS 10/02/16 04/08/19 History Cholecalciferol [Vitamin D3] 1,000 unit PO DAILY 12/14/16 04/08/19 History Zyq-Kpek-Fvhwo Acid 1 cap PO DAILY 12/14/16 04/08/19 History [-U Capsule (formulary)] Allergies Allergy/AdvReac Type Severity Reaction Status Date / Time No Known Allergies Allergy Verified 04/08/19 21:16 Exam Osteopathic Statement: *. No significant issues noted on an osteopathic structural exam other than those noted in the History and Physical/Consult. Vital Signs Temp Pulse Resp BP Pulse Ox 04/09/19 00:21 97.3 F L 60 16 123/69 04/08/19 21:19 97.2 F L 67 16 126/78 97 Intake and Output 04/08/19 04/09/19 04/09/19 22:59 06:59 14:59 Other: Weight 106.594 kg HEENT: Within normal limits Heart: Regular rate and rhythm Lungs: Clear to auscultation bilaterally Abdomen: Speculum exam: Positive amnisure with clear fluid noted. Extremities: Negative Homans heart tones: Category 1 tracing. Results Result Diagrams: 04/08/19 23:00 Abnormal Lab Results - Last 24 Hours (Table) 04/08/19 Range/Units 23:00 WBC 11.4 H (3.8-10.6) k/uL Neutrophils # 8.4 H (1.3-7.7) k/uL Assessment and Plan (1) 39 weeks gestation of Current Visit: Yes Status: Acute Code(s): Z3A.39 - 39 WEEKS GESTATION OF SNOMED Code(s): 56845020 (2) Spontaneous rupture of membranes Current Visit: Yes Status: Acute Code(s): HVQ9334 - SNOMED Code(s): 1 12444006 Plan: Oxytocin augmentation of labor. Expectant management. Epidural anesthesia. Antibiotics when she reaches 18 hours of rupture.
[2019-04-09] MEDS ORDERED: OXYTOCIN 20 UNITS/1000 ML NS 1,000 ML IV SCH (09:12)
[2019-04-09] MEDS ORDERED: SIMETHICONE 80 MG CHEWABLE PO PRN (09:12)
[2019-04-09] MEDS ORDERED: diphenhydrAMINE 25 MG CAP PO PRN (09:12)
[2019-04-09] MEDS ORDERED: diphenhydrAMINE 50 MG/ML 1 ML VIAL IVP PRN ×2 (09:12)
[2019-04-09] MEDS ORDERED: diphenhydrAMINE 50 MG CAP PO PRN (09:12)
[2019-04-09] MEDS ORDERED: ACETAMINOPHEN TAB 325 MG TAB PO PRN (09:12)
[2019-04-09] MEDS ORDERED: ZOLPIDEM 5 MG TAB PO PRN (09:12)
[2019-04-09] MEDS ORDERED: WITCH HAZEL 1 EACH MED..PAD TOPICAL PRN (09:12)
[2019-04-09] MEDS ORDERED: HYDROCORTISONE 2.5% RECTAL CREAM 30 GM TUBE RECTAL PRN (09:12)
[2019-04-09] MEDS ORDERED: LANOLIN CREAM 5 GM TUBE TOPICAL PRN (09:12)
[2019-04-09] MEDS: IBUPROFEN 600 MG TAB PO PRN ×2 (11:34→18:15)
[2019-04-09] MEDS: PRENATAL VIT-IRON-FOLIC ACID 1 EACH CAP PO SCH (13:56)
[2019-04-09] MEDS: CHOLECALCIFEROL 1,000 UNIT TAB PO SCH (13:56)
[2019-04-09] MEDS: LORATADINE 10 MG TAB PO SCH (18:15)
[2019-04-10] MEDS: SENNOSIDES-DOCUSATE SODIUM 1 EACH TAB PO SCH ×3 (00:30→20:30)
[2019-04-10] MEDS: IBUPROFEN 600 MG TAB PO PRN ×3 (07:43→23:22)
[2019-04-10 07:46] LABS: Basophils % (A) 0 %; Eosinophils # (A) 0.1 k/uL (0-0.7); Eosinophils % (A) 1 %; HCT 32.6 % (34.0-46.0); HGB 11.3 gm/dL (11.4-16.0); Lymphocytes # (A) 1.6 k/uL (1.0-4.8); Lymphocytes % (A) 16 %; MCH 32.7 pg (25.0-35.0); MCHC 34.5 g/dL (31.0-37.0); MCV 94.7 fL (80.0-100.0); Mean Platelet Volume 6.7; Monocytes # (A) 0.3 k/uL (0-1.0); Monocytes % (A) 3 %; Neutrophils # (A) 7.8 k/uL (1.3-7.7); Neutrophils % (A) 78 %; Platelet Count 228 k/uL (150-450); RBC 3.44 m/uL (3.80-5.40); RDW 12.9 % (11.5-15.5)
--- NOTE | 2019-04-10 08:07 | P.PNOBGVD ---
Subjective - Subjective Principal diagnosis: Status post vaginal delivery post day #1 Interval history: Patient is doing well. She is breast-feeding. Lochia is decreasing. She is a little more sore today than she was yesterday however she is trying to keep up with her pain medication. Baby does need to stay 1 more day. Patient reports: Reports appetite normal, Reports voiding normally, Reports pain well controlled, Reports ambulating normally Dr[place]: doing well, nursing well Objective - Latest Vital Signs Latest vital signs: Vital Signs Temp Pulse Resp BP 04/10/19 00:00 98 F 61 16 117/70 04/09/19 20:00 98.7 F 71 16 133/67 04/09/19 16:00 98.7 F 63 15 117/64 04/09/19 12:00 98.6 F 77 16 129/70 04/09/19 10:54 75 16 110/71 04/09/19 10:24 75 16 115/65 04/09/19 09:54 85 16 111/66 04/09/19 09:37 77 16 112/66 04/09/19 09:24 62 16 112/72 04/09/19 09:09 65 16 117/68 04/09/19 08:54 96.7 F L 92 16 121/64 - Exam Extremities: Present: normal. Absent: tenderness Abdomen: Present: normal appearance, soft. Absent: distention, tenderness Uterus: Present: normal, firm. Absent: tenderness - Labs Labs: Abnormal Lab Results - Last 24 Hours (Table) 04/10/19 Range/Units 06:48 RBC 3.44 L (3.80-5.40) m/uL Hgb 11.3 L (11.4-16.0) gm/dL Hct 32.6 L (34.0-46.0) % Neutrophils # 7.8 H (1.3-7.7) k/uL Assessment and Plan Assessment: Status post vaginal delivery day #1 (1) 39 weeks gestation of Current Visit: Yes Status: Acute Code(s): Z3A.39 - 39 WEEKS GESTATION OF SNOMED Code(s): 45595929 (2) Spontaneous rupture of membranes Current Visit: Yes Status: Acute Code(s): CAZ9645 - SNOMED Code(s): 832217146 Plan: Continue care today. Anticipate discharge home tomorrow.
[2019-04-10] MEDS: PRENATAL VIT-IRON-FOLIC ACID 1 EACH CAP PO SCH (12:17)
[2019-04-10] MEDS: CHOLECALCIFEROL 1,000 UNIT TAB PO SCH (14:34)
[2019-04-10] MEDS: LORATADINE 10 MG TAB PO SCH (20:30)
[2019-04-11] MEDS: CHOLECALCIFEROL 1,000 UNIT TAB PO SCH (08:07)
[2019-04-11] MEDS: IBUPROFEN 600 MG TAB PO PRN (08:07)
[2019-04-11] MEDS: PRENATAL VIT-IRON-FOLIC ACID 1 EACH CAP PO SCH (08:07)
[2019-04-11] MEDS: SENNOSIDES-DOCUSATE SODIUM 1 EACH TAB PO SCH (08:30)
--- NOTE | 2019-04-11 09:24 | P.DS ---
Providers Date of admission: 04/08/19 22:30 Expected date of discharge: 04/11/19 Attending physician: Rand Daly Primary care physician: Stated None - Discharge Diagnosis(es) (1) 39 weeks gestation of Current Visit: Yes Status: Acute (2) Spontaneous rupture of membranes Current Visit: Yes Status: Acute Hospital Course: This is a 34-year-old female 2 para 1 at 39-3/7 weeks who presented with prolonged rupture of membranes. She underwent oxytocin augmentation of labor and delivered vaginally a viable male on 04/09/2019 with scores of 7 at 1 minute and 7 at 5 minutes and weight of 8 pounds. Her course has been uncomplicated. Lochia is decreasing. Her pain is well- controlled. She is breast-feeding without difficulty. Vital signs are stable. Abdomen is soft with fundus firm and nontender. Extremities show negative Homans. Impression is status post vaginal delivery day #2. Plan is to discharge home today. Routine instructions are given. She is given a prescription for ibuprofen. She has a breast pump at home. She is advised follow-up in the office in 6 weeks for a check. She is advised to call the office if she has any further questions or concerns prior to her point in time. Procedures: Oxytocin augmentation of labor Spontaneous vaginal delivery of a viable male on 04/09/2019 Patient Condition at Discharge: Stable Plan - Discharge Summary New Discharge Prescriptions: New Ibuprofen [Motrin] 600 mg PO Q6HR PRN #60 tab PRN Reason: Mild Pain Or Fever >= 100.5 Continue Htl-Dhux-Atoex Acid [-U Capsule (formulary)] 1 cap PO DAILY Cholecalciferol [Vitamin D3 (25 Mcg = 1000 Iu)] 1,000 unit PO DAILY No Action Cetirizine HCl [Zyrtec] 10 mg PO HS Discharge Medication List Cetirizine HCl [Zyrtec] 10 mg PO HS 10/02/16 [History] Cholecalciferol [Vitamin D3 (25 Mcg = 1000 Iu)] 1,000 unit PO DAILY 12/14/16 [History] Dzn-Ohyu-Qiimp Acid [-U Capsule (formulary)] 1 cap PO DAILY 12/14/16 [History] Ibuprofen [Motrin] 600 mg PO Q6HR PRN #60 tab 04/11/19 [Rx] Follow up Appointment(s)/Referral(s): Rand Daly DO [Doctor of Osteopathic Medicine] - 6 Weeks Activity/Diet/Wound Care/Special Instructions: Instructions 1. Do not begin any exercise program for 3 weeks. 2. Do not resume sexual relations for 3 weeks or longer if uncomfortable. 3. You may take tub baths or showers at any time. 4. You may use tampons if desired after 3 weeks. 5. Keep the area of episiotomy (stitches) clean and dry. 6. If you are not nursing, wear a good fitting, supportive bra during the day and limit fluid intake for at least 1 week to prevent breast engorgement. 7. Call the office, [phone], within the next week to make appointment for your 6 week checkup if it has not already been made. 8. Report any of the following occurrences to the doctor promptly: a. Heavy, excessive bleeding b. Chills, fever c. Burning or frequency of urination d. Pain or redness and breasts if nursing e. Increasing pain or swelling in episiotomy (stitches). In addition to the above instructions, the following additional should be followed: 1. No heavy lifting or straining (exercising) until after 6 week checkup. 2. Keep abdominal incision clean and dry: You may wear a dressing if more comfortable. 3. Make office appointment for 10 days after going home or as instructed by her doctor. Discharge Disposition: HOME SELF-CARE
[2019-04-11 11:12] VITALS: BP 116/72; PULSE 78; RESP 16; TEMP 98.3
== END 2019-04-11 12:10 | disposition home or self-care (01) | DRG 807 ==
LOC: FBPOP 20:58 → 4FBP 22:30
PROVIDERS: ADMIT Obstetrics & Gynecology; ATTEND Obstetrics & Gynecology
PROC: 00HU33Z Insertion of Infusion Device into Spinal Canal, Percutaneous Approach (ICD-10-PCS; principal; 2019-04-08)
PROC: 10E0XZZ Delivery of Products of Conception, External Approach (ICD-10-PCS; principal; 2019-04-08)
PROC: 3E0R3BZ Introduction of Anesthetic Agent into Spinal Canal, Percutaneous Approach (ICD-10-PCS; principal; 2019-04-08)
PROC: 0KQM0ZZ Repair Perineum Muscle, Open Approach (ICD-10-PCS; principal; 2019-04-08)
DX: O42.92 Full-term premature rupture of membranes, unspecified as to length of time between rupture and onset of labor (principal); Z37.0 Single live birth; O69.1XX0 Labor and delivery complicated by cord around neck, with compression, not applicable or unspecified; O99.62 Diseases of the digestive system complicating childbirth; K21.9 Gastro-esophageal reflux disease without esophagitis; Z3A.39 39 weeks gestation of pregnancy; O70.1 Second degree perineal laceration during delivery; Z79.899 Other long term (current) drug therapy; Z83.49 Family history of other endocrine, nutritional and metabolic diseases; Z83.438 Family history of other disorder of lipoprotein metabolism and other lipidemia; Z80.9 Family history of malignant neoplasm, unspecified
CPT/HCPCS: 59025; 76815; 84112; 85025; 86850; 86900; 86901; 88307; 99213

== ENCOUNTER → 2022-11-09 | Outpatient (CLI) | payer BC ==
--- NOTE | 2022-11-10 19:58 | MM ---
Reason for Exam: Screening (asymptomatic). Baseline mammogram. Patient History: Menarche at age 13. First Full-Term at age 32. Late child-bearing (after 31). Currently using Hormonal Contraceptives, starting at age 34. Last menstrual period: 10/12/2022 Risk Values: Sumaya 5 year model risk: 0.5%. NCI Lifetime model risk: 13.8%. Prior Study Comparison: Patient's first Mammogram. No prior studies available for comparison. Tissue Density: The breast tissue is heterogeneously dense. This may lower the sensitivity of mammography. Findings: Analyzed By CAD. There is an oval area of 2.5 cm isodense nodularity far posterior central left breast. Further evaluation is recommended. Otherwise, no significant mass, suspicious microcalcification, or other discrete abnormality is seen. Overall Assessment: Incomplete: need additional imaging evaluation, BI-RAD 0 Management: Special View Mammogram of the left breast. Diagnostic Breast Ultrasound of the left breast. Additional views including spot 3-D CC, spot 3-D MLO, and 3 lateral views. Also, whole left breast ultrasound. [facility] will attempt to contact patient to return for supplemental views and ultrasound if indicated. Electronically signed and approved by: Latosha Gordon M.D. Radiologist
== END | disposition home or self-care (01) ==
LOC: RADMAMWWP 08:13
PROVIDERS: ATTEND Obstetrics & Gynecology
DX: Z12.31 Encounter for screening mammogram for malignant neoplasm of breast (principal)
CPT/HCPCS: 77067

== ENCOUNTER → 2022-11-29 | Outpatient (CLI) | payer BC ==
--- NOTE | 2022-11-29 14:06 | MM ---
Reason for Exam: Additional evaluation requested from prior study. Last screening mammogram was performed less than 1 month ago. Patient History: Menarche at age 13. First Full-Term at age 32. Late child-bearing (after 31). Currently using Hormonal Contraceptives, starting at age 34. Last menstrual period: 11/14/2022 Risk Values: Sumaya 5 year model risk: 0.5%. NCI Lifetime model risk: 13.8%. Prior Study Comparison: 11/09/2022 Bilateral MG screening mammo w CAD, [facility]. Tissue Density: Left: The breast tissue is heterogeneously dense. This may lower the sensitivity of mammography. Findings: Analyzed By CAD. Persistent focal asymmetry 9-10 cm from the nipple posterior depth measuring up to 25 mm in the left breast. Right breast no evidence for focal asymmetry, distortion, constipation or mass. Overall Assessment: Incomplete: need additional imaging evaluation, BI-RAD 0 Management: Diagnostic Breast Ultrasound of the left breast. Results were given to the patient verbally at the time of exam. Patient should continue monthly self-breast exams. A clinical breast exam by your physician is recommended on an annual basis. This exam should not preclude additional follow-up of suspicious palpable abnormalities. Note on Sumaya scores and lifetime risk: 1. A Sumaya score greater than 3% is considered moderate risk. If this is the case, consider specialist referral to assess eligibility for a risk reducing agent. 2. If overall lifetime risk for the development of breast cancer is 20% or higher, the patient may qualify for future screening with alternating mammogram and breast MRI. Electronically signed and approved by: Nick Grant DO
--- NOTE | 2022-11-29 14:40 | USB ---
Reason for Exam: Additional evaluation requested from abnormal screening. Patient History: Menarche at age 13. First Full-Term at age 32. Late child-bearing (after 31). Currently using Hormonal Contraceptives, starting at age 34. Risk Values: Sumaya 5 year model risk: 0.5%. NCI Lifetime model risk: 13.8%. Technique: Method: Targeted. Prior Study Comparison: 11/09/2022 Bilateral MG screening mammo w CAD, [facility]. Findings: The lower outer quadrant of the left breast, the axilla of the left breast and the retroareolar of the left breast were scanned. Imaged: Ultrasound imaging of: Area of concern, retroareolar region and axilla. No evidence for organizing fluid collection or mass. Mammography likely representing asymmetric glandular tissue. Attention on follow-up imaging. Overall Assessment: Negative, BI-RAD 1 Management: Screening Mammogram of both breasts in 1 year. A clinical breast exam by your physician is recommended on an annual basis and results should be correlated with mammographic findings. This exam should not preclude additional follow-up of suspicious palpable abnormalities. Results were given to the patient verbally at the time of exam. Electronically signed and approved by: Nick Grant DO
== END | disposition home or self-care (01) ==
LOC: RADMAMWWP 13:33
PROVIDERS: ATTEND Obstetrics & Gynecology
DX: R92.8 Other abnormal and inconclusive findings on diagnostic imaging of breast (principal)
CPT/HCPCS: 77061; 77065

== ENCOUNTER → 2024-02-29 | Outpatient (CLI) | payer BC ==
--- NOTE | 2024-03-04 07:11 | XR ---
EXAMINATION TYPE: XR pelvis AP view DATE OF EXAM: 02/29/2024 COMPARISON: None HISTORY: Radiculopathy, pain TECHNIQUE: AP and lateral pelvis FINDINGS: Femoral heads articulate with the acetabulum. Symphysis pubis and sacroiliac joints are nor mal. No acute fractures are evident. Sacrum and coccyx appear unremarkable. IMPRESSION: 1. Unremarkable two-view pelvis [facility], Workstation: [facility], 03/04/2024 7:08 AM
--- NOTE | 2024-03-04 08:01 | XR ---
EXAMINATION TYPE: XR thoracic spine complete DATE OF EXAM: 02/29/2024 COMPARISON: None HISTORY: Pain TECHNIQUE: Three-view thoracic spine supplemented with a cervical spine study FINDINGS: There are 12 thoracic type vertebral bodies. Pedicles are intact. Disc heights are preserve d. Vertebral body heights are preserved. Minimal spondylosis is present. Alignment is preserved. IMPRESSION: 1. No acute osseous abnormality thoracic spine [facility], , 03/04/2024 7:58 AM
--- NOTE | 2024-03-04 08:04 | XR ---
EXAMINATION TYPE: XR cervical spine comp DATE OF EXAM: 02/29/2024 COMPARISON: None HISTORY: Radiculopathy C7-T1 TECHNIQUE: Cervical spine is examined in 5 projections FINDINGS: Mild scoliosis is present at the cervical thoracic region. Right C5-6 foraminal stenosis is present. Correlate with radicular symptoms. Narrowing of disc height is present C5-6. Some posterior endplate spurring is present C5-6. Consider MRI for additional evaluation. Prevertebral space is normal. Remaining disc heights are preserved. Vertebral body heights are preser abhishek. IMPRESSION: 1. Degenerative disc change and right foraminal stenosis C5-6. Consider follow-up with MRI. [facility], , 03/04/2024 8:02 AM
== END | disposition home or self-care (01) ==
LOC: RADXRMAIN 13:40
PROVIDERS: ATTEND Chiropractor
DX: M54.10 Radiculopathy, site unspecified
CPT/HCPCS: 72050; 72072; 72170

== ENCOUNTER → 2024-03-11 | Outpatient (CLI) | payer BC ==
--- NOTE | 2024-03-11 12:29 | MR ---
EXAMINATION TYPE: MR brain wo/w con DATE OF EXAM: 03/11/2024 COMPARISON: NONE HISTORY: 39-year-old female Hand tremors x 6 months TECHNIQUE: Multiplanar, multisequence images of the brain and brainstem were acquired before and aft er administration of 9 mL IV Gadavist. Diffusion weighted imaging is performed. FINDINGS: No evidence for acute infarction, hemorrhage, mass, mass effect, midline shift, herniation, effacemen t of basal cisterns, or extra-axial fluid collection. The ventricles and sulci are age-appropriate. Asymmetrically smaller left lateral ventricle compatibl e with anatomic variation. Major intracranial flow voids are intact. T2/FLAIR weighted sequences show no white matter signal abnormality. Midline structures demonstrate normal morphology. The craniocervical junction is normal. Post contrast images demonstrate no evidence of pathologic enhancement. Dural venous sinuses are pat ent. The visualized sinuses are clear and the globes are intact. IMPRESSION: No acute intracranial abnormality seen. No enhancing intracranial lesions or white matter signal ana orr. [facility], , 03/11/2024 12:27 PM
== END | disposition home or self-care (01) ==
LOC: RADMRIMAIN 08:17
PROVIDERS: ATTEND Psychiatry & Neurology Neurology
CPT/HCPCS: 70553